=== PATIENT | female | born 1985 | race Caucasian/White ===

== ENCOUNTER 2025-03-01 12:56 | Emergency (ER) | payer OTHER, MEDICAID, SELFPAY ==
--- OUTSIDE RECORDS SUMMARY | 2025-03-01 12:58 | XMS_ITS | Encounter Summary ---
Author Organization [facility] Address [address] [place] [id number] Care Team Providers Care Water Supervisor Name Role Phone Ritu Mendoza NP Primary Care Provider [phone] Ritu Mendoza NP Unavailable Jefferson Joyce MD Unavailable Unavailabl e Genoveva Yap Primary Care Provider Genoveva Yap Unavailable Pierre Vegas MD Primary Care Provider Ritu Mendoza NP Primary Care Provider [phone] Nila Redding Primary Care Provider Kevin Roach MD Primary Care Provider Encounter Details Date Type Department Care Team (Late st Contact Info) Description 03/27/2016 Scanned Document SCANNED ONLY Scanned, Document Social History Tobacco Use Types Packs/Day Years Used Date Smoking Tobacco: Every Day Cigarettes 0.3 9.7 Started: 07/01/2015 Smokeless Tobacco: Never Comments:trying her best. Alcohol Use Standard Drinks/Week Comments No 0 (1 standard drink = 0.6 oz pur e alcohol) Comments No Sex and Gender Information Value Date Recorded Sex Assigned at Not on file Legal Sex Female 10:00 AM PST Gender Identity Not on file Sexual Orientation Not on file documented as of this encounter Plan of Treatment Upcoming Encounters Date Type Department Care Team (Late Contact Info) Description 03/08/2025 9:00 AM PST Return Visit [address] [address] Andrew Coleman MD [facility] [place], [place] [id number] Brittany Silvestre, PT 03/21/2025 8:00 AM PST Return Visit [address] [address] Andrew Coleman MD [facility] [place], [place] [address] Brittany Silvestre, PT 03/28/2025 8:00 AM PST Return Visit [address] [id number] Andrew Coleman MD [facility] [place], [place] [id number] Brittany Silvestre, PT documented as of this encounter Visit Diagnoses Not on filedocumented in this encounter Care Teams Water Supervisor Relationship Specialty Start Date End Date Ritu Mendoza NP PCP - General Nurse Practitioner 04/10/14 07/13/16 Ritu Mendzoa NP PCP - INS PCP Nurse Practitioner 08/04/14 08/31/16 Genoveva Yap ARNP PCP - General Nurse Practitioner 07/14/16 02/23/17 Pierre Vegas MD PCP - General Family Medicine 02/24/17 08/02/18 Ritu Mendoza NP PCP - General Nurse Practitioner 09/01/18 07/29/22 Nila Redding ARNP [address] [facility] [address] [place] [address] PCP - General Nurse Practitioner 07/30/22 10/09/24 Kevin Roach MD [address] [place] [address] [id number] PCP - General 10/20/24 02/20/25 Jefferson Joyce MD Physician Addiction Medicine 10/31/14 09/22/23 Genoveva Yap ARNP Nurse Practitioner Nurse Practitioner 09/01/16 09/22/23 documented as of this encounter
[2025-03-01 13:18] VITALS: BP 118/69; PULSE 81; RESP 18; TEMP 36.1; O2SAT 98; BMI 35.5
--- NOTE | 2025-03-01 14:48 | CM.SWNOTE ---
ED APPLICATION SECURITY ARCHITECT Assessment Note: APPLICATION SECURITY ARCHITECT - Furnace Repairer Assessment APPLICATION SECURITY ARCHITECT/Furnace Repairer Assessment Time Spent with Patient Start date 03/01/25 Visit Start Time 13:20 End date 03/01/25 Visit End Time 13:45 Total time Care 20 minutes Management spent on patient visit-in minutes Mental Health Screening Include Onset, Duration, Intensity Presenting Problem Patient presented to the ED requesting MH assistance, states she has been recognizing symptoms of depression. Precipitating Event( Patient explains she has been 9 months clean and sober s) from methamphetamines and any psychiatric medications. Patient states she recognizes she has not been keeping up with ADLs and has had very little motivation. Patient states she has had trouble with sleep everyday and having very little energy. Patient explains she has trouble concentrating everyday. Patient states she has fleeting SI but none today, no history of attempts or self harm. 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 Current Behavioral None reported. Health Provider(s) Include Facility, Provider, Ph. # Psych. Hx Mental Hx of PTSD, ADHD. Patient states she was prescribed [facility] klonazepam and hydroxyzine for 9 years and was abruptly Dependency taken off of it when she disclosed with her Provider that she has been sober for 2 weeks, at that time. Patient has a history of IV meth use, has been clean and sober for 9 months. Family Hx of Reports her daughter a couple of years ago and she Behavioral Abuse is still dealing with this grief. Psychiatric None reported. Hospitalizations ( date(s)/location) Psychosocial Patient is a 39yo female, resident of [place] with information & her 9yo daughter and 2 dogs. Patient has a good support Support Systems of sober friends and a sponsor, she states she attends group meetings 3x/day. School/Work None reported. Legal Concerns Legal Matters - None reported. Outstanding Issues Mental Status Orientation (Person/ Aox3 Place/Time) Stated Mood Depressed, tired Affect (Congruent Congruent with mood, labile with Mood?) Thought Content - None reported, none assessed. Specify/Describe Obsessions, Delusions, Hallucinations Thought Processes ( Logical, circumstantial Logical-Coherent- Goal Directed- Detailed-Tangential- Circumstantial- Logical-Disorganized -Thought Blocking) Speech (Normal-Slow- Normal, rapid Czrvoqt-Vfvzg-Oped- Loud-Pressured) Motor (Normal- Normal Sncslzeei-Pevf-Dyyyk ) Insight (Good-Fair- Good Poor/Limited) Judgement (Good-Fair Good -Poor/Limited) Impulse Control ( Intact Adequate-Impaired) Memory (Immediate- Intact Recent-Remote, Impaired-Intact) Concentration ( Impaired Intact-Impaired) Attention (Intact- Impaired Impaired) Behavior ( Appropriate Appropriate- Inappropriate) Risk Assessment Suicidal Ideation ( No Plan) Homicidal Ideation ( No Plan) Comment [place]-SUICIDE SEVERITY RATING SCALE 1) Have you wished you were or wished you could go to sleep and not wake up? NO 2) Have you actually had any thoughts of killing yourself? NO 3) Have you been thinking about how you might do this? NO 4) Have you had these thoughts and had some intention of acting on them? NO 5) Have you started to work out or worked out the details of how to kill yourself? Do you intend to carry out this plan? NO 6) Have you ever done anything, started to do anything, or prepared to do anything to end your life? NO If YES, ask: Was this within the past three months? N/A Intervention Intervention Reviewed chart and discussed with ED Provider pt's medical status and discharge needs. ED APPLICATION SECURITY ARCHITECT meets with patient at triage. Patient endorses recognizing a change in her emotions and having little control over her energy levels or motivation. Patient explains she is 9 months clean and sober from methamphetamines and psychiatric medications. Patient explains she has had very little sleep, little to no motivation to keep up with her own ADLs. She denies SI/ HI today, but notes that it is fleeting when she feels hopeless or grief is immense (she lost her daughter in recent years). Patient states she feels supported by her sober friends and is hoping to get some assistance via medication from a ED Provider to help her sleep or for depression symptoms as well as a referral to outpatient MH treatment. APPLICATION SECURITY ARCHITECT deployed PHQ-9 and YOUNG-7, pt scored 9 and 19, respectively. ED APPLICATION SECURITY ARCHITECT and patient discuss goals of care. Patient explains they are agreeable to receive outpatient behavioral health treatment at this time. APPLICATION SECURITY ARCHITECT sent referral with pt consent to [facility] to establish her with intensive outpatient treatment for medication management and MH therapy. At this time, it is the opinion of this APPLICATION SECURITY ARCHITECT that patient would benefit from intensive outpatient treatment for Mental health and continued L[facility]I treatment/meetings. APPLICATION SECURITY ARCHITECT informs ED provider, Dr. Green/JOSE DANIEL Wells, who indicates agreement. APPLICATION SECURITY ARCHITECT informs JADIEL Corea. Plan RA Plan When medically cleared, pt to discharge home and follow up with [facility] referral. AMRIOLA Medley
--- NOTE | 2025-03-01 19:11 | ED_ITS ---
HPI - Psych General Chief Complaint: Psychiatric Symptoms Stated Complaint: Mental Health Time Seen by Provider: 03/01/25 13:10 Source: patient Mode of arrival: Family Vehicle History of Present Illness HPI Narrative: Patient left without being seen. Related Data Home Medications ?Medication ?Instructions ?Recorded ?Confirmed clonazepam 0.5 mg tablet 0.25 mg PO BID PRN ##0 11/01 gabapentin 300 mg capsule 300 mg PO TID ##0 11/01/16 (Neurontin) hydroxyzine HCl 50 mg tablet 50 mg PO QHS ##0 11/01/16 Previous Rx's ?Medication ?Instructions ?Recorded hydrocodone 5 mg-acetaminophen 325 1 tab PO Q4HP PRN # 5 tabs 11/01/16 mg tablet ([place]) Allergies Allergy/AdvReac Type Severity Reaction Status Date / Time No Known Allergies Allergy Uncoded 03/01/25 13:18 Patient History Social History Smoking Status: Current some day smoker Smoking Status: Current some day smoker tobacco type: cigarettes and vaping Exam Initial Vital Signs Initial Vital Signs: Vital Signs Temperature 97.0 F L 03/01/25 13:18 Pulse Rate 81 03/01/25 13:18 Respiratory Rate 18 03/01/25 13:18 Blood Pressure 118/69 03/01/25 13:18 Pulse Oximetry 98 03/01/25 13:18 Oxygen Delivery Method Room Air 03/01/25 13:18 Course Orders Ordered: ED Orders 03/01/25 13:33 Consult to SPRAY PAINTING MACHINE OPERATOR - Traveling Buyer Stat Vital Signs Vital signs: Vital Signs - 8 hr 03/01/25 13:18 Temperature 97.0 F L Pulse Rate 81 Respiratory Rate 18 Blood Pressure 118/69 Pulse Oximetry 98 Oxygen Delivery Method Room Air Discharge Plan Departure Patient Disposition: Left Without Being Seen Clinical Impression: Patient left without being seen Prescriptions: No Action clonazepam 0.5 MG tablet 0.25 mg PO BID PRNQty: 0 gabapentin [Neurontin] 300 MG capsule 300 mg PO TID Qty: 0 hydroxyzine HCl 50 MG tablet 50 mg PO QHS Qty: 0 hydrocodone-acetaminophen [[place]] 5 MG/325 MG tablet 1 tab PO Q4HP PRNQty: 5 0RF
== END 2025-03-01 15:32 | disposition left against medical advice (07) ==
PROVIDERS: Emergency Provider Student in an Organized Health Care Education/Training Program; PCP Internal Medicine
DX: Z53.21 Procedure and treatment not carried out due to patient leaving prior to being seen by health care provider (principal)
CPT/HCPCS: 99281